=== PATIENT | female | born 1970 | race Caucasian/White ===

== ENCOUNTER 2023-09-13 07:03 | Outpatient (CLI) | payer OTHER | END 2023-09-13 07:04 | disposition home or self-care (01) | LOC: ULT 07:03 | PROVIDERS: ATTEND Registered Nurse | DX: R10.31 Right lower quadrant pain (principal); Z90.49 Acquired absence of other specified parts of digestive tract; Z87.42 Personal history of other diseases of the female genital tract; Z90.710 Acquired absence of both cervix and uterus | CPT/HCPCS: 76856 ==